=== PATIENT | female | born 1980 | race Caucasian/White ===

== ENCOUNTER 2017-03-31 13:24 | Outpatient (CLI) | payer MEDICAID ==
[~2017-03-31] VITALS: Ht 167.6 cm; Wt 97.7 kg
[2017-03-31] MEDS ORDERED: PRENAT PO (13:49)
[2017-03-31] MEDS ORDERED: FER325 PO (13:49)
[2017-03-31 13:50] VITALS: Ht 167.6 cm; Wt 97.7 kg
[2017-03-31 13:51] VITALS: BP 104/54; PULSE 88; RESP 18
[2017-03-31 14:51] LABS: ADD UMIC NO; URINE BILIRUBIN (Dip) NEGATIVE (NEGATIVE); URINE BLOOD (Dip) NEGATIVE (NEGATIVE); URINE COLOR LT. YELLOW (YELLOW); URINE GLUCOSE (Dip) NEGATIVE (NEGATIVE); URINE KETONES (Dip) NEGATIVE (NEGATIVE); URINE LEUKOCYTE ESTERASE (Dip) NEGATIVE (NEGATIVE); URINE NITRITE (Dip) NEGATIVE (NEGATIVE); URINE TOTAL PROTEIN (Dip) NEGATIVE (NEGATIVE); URINE UROBILINOGEN (Dip) 0.2 E.U./dL (0.1-1.0)
--- NOTE | 2017-03-31 14:52 | RADRPT ---
PROCEDURE: Limited obstetric ultrasound CLINICAL INDICATION: Pain , labor TECHNIQUE: Multiple transverse and longitudinal grayscale images of the pelvis were obtained dwyer sabdominally and transvaginally.. COMPARISON: same day FINDINGS: The cervix is closed with a length of 4.3 cm. There is a single viable intrauterine gestation. Cardiac activity is present with 140 beats per min rosa. There is a breech presentation. The placenta is posterior. There is no evidence for an abruption or placenta previa. RPTAT: AA IMPRESSION: Cervix length measures 4.3 cm. .William Loya MD, Date Time Electronically viewed and signed by .William Loya MD, on 03/31/2017 14:51 .S/
--- NOTE | 2017-03-31 22:00 | PN ---
Triage Information Date/Time 03/31/2017 Weeks of Gestation 28 weeks and 6 days : 4 Para: 3 Diabetes: none Hypertention: none Additional information 37-year-old with IUP at 28 weeks and 6 days with care at [facility] and history of 3 she presented to triage for evaluation rule out labor. She was seen during regular visit and told that she has some contractions every 10 minutes. She was sent to triage for rule out labor. She denies any decreased movement, leaking of fluid or vaginal bleeding. She denies any urinary symptoms. Denies any complications during the course. Patient feels less contraction when she arrived to triage Objective Vital Signs Date Time Temp Pulse Resp B/P Pulse Ox O2 Delivery O2 Flow Rate FiO2 03/31/17 13:51 98.4 88 18 104/54 Room Air Exam General appearance: Alert and oriented 4 patient does not appear to be in any acute distress. Abdomen: Soft, gravid, fundal height consistent with gestational age NST: Category 1 Occasional rare contractions seen UA negative Results/Medications Results 24 hrs Laboratory Tests Test 03/31/17 13:40 Urine Color LT. YELLOW Urine Clarity CLEAR Urine pH 6.0 Urine Specific [place] <=1.005 L Urine Ketones NEGATIVE Urine Nitrite NEGATIVE Urine Bilirubin NEGATIVE Urine Urobilinogen 0.2 E.U./dL Urine Leukocyte Esterase NEGATIVE Urine Hemoglobin NEGATIVE Urine Glucose NEGATIVE Urine Total Protein NEGATIVE Imaging Results PROCEDURE: Limited obstetric ultrasound CLINICAL INDICATION: Pain , labor TECHNIQUE: Multiple transverse and longitudinal grayscale images of the pelvis were obtained transabdominally and transvaginally.. COMPARISON: same day FINDINGS: The cervix is closed with a length of 4.3 cm. There is a single viable intrauterine gestation. Cardiac activity is present with 140 beats per minute. There is a breech presentation. The placenta is posterior. There is no evidence for an abruption or placenta previa. RPTAT: AA IMPRESSION: Cervix length measures 4.3 cm. Assessment/Plan IUP at 28 weeks and 6 days 3 no evidence of labor Rare contraction on the monitor Transvaginal cervical length about 4 cm Patient comfortable Will DC home Advise about adequate hydration labor precaution and kick count discussed Return to triage if the symptoms recurs again or has any decreased movement, contractions, leaking of fluid or vaginal bleeding Follow-up with OB office in 1-2 days recommended Patient verbalized understanding and agreed to comply with instructions EDITH FRANKLIN MD Mar 31, 2017 22:00
== END 2017-03-31 16:05 | disposition home or self-care (01) ==
LOC: OBT 13:24 → L-D 13:25 → OBT 16:05
PROVIDERS: ATTEND Obstetrics & Gynecology
DX: O62.9 Abnormality of forces of labor, unspecified (principal); O60.03 Preterm labor without delivery, third trimester; O09.523 Supervision of elderly multigravida, third trimester; Z3A.28 28 weeks gestation of pregnancy
CPT/HCPCS: 76817; 81003; Z7500; G0463

== ENCOUNTER 2017-04-23 15:40 | Outpatient (CLI) | payer MEDICAID ==
[~2017-04-23] VITALS: Ht 167.6 cm; Wt 98.3 kg
[~2017-04-23 15:40] MED LIST: FER325 PO; PRENAT PO
[2017-04-23 15:52] VITALS: Ht 167.6 cm; Wt 98.3 kg
[2017-04-23 15:56] VITALS: BP 106/59; PULSE 90; RESP 17
--- NOTE | 2017-04-23 16:43 | RADRPT ---
PROCEDURE: US OB biophysical profile. CLINICAL INDICATION: Polyhydramnios in a 37 year-old female. TECHNIQUE: Multiple sonographic images of the pelvis were obtained. The images were reviewed on a PACS workstation. COMPARISON: None FINDINGS: Presentation: Cephalic. Cardiac activity is present with 150 beats per minute. The placenta is right fundal placenta. MVP: Amniotic fluid index: 22.2 cm Biophysical profile: movement 2/2 tone 2/2. breathing 2/2 BETH 2/2 Total 06/01 IMPRESSION: 1. Amniotic fluid index: 22.2 cm 2. Normal biophysical profile. . Physician Mariaelena Date Time Electronically viewed and signed by Physician Mariaelena on 04/23/2017 16:42 JM/
--- NOTE | 2017-04-23 18:24 | CONS ---
Date/Time of Note Date/Time of Note DATE: 04/23/17 TIME: 18:20 Consultation Date/Type/Reason Admit Date/Time April 23, 2017 OB triage consult Reason for Consultation This patient is a 37 years old 4 para 3 with estimated date of confinement of June 18, 2017 which makes her 32 weeks now she had old 3 deliveries by section she came to the triage area due to polyhydramnios measured 22.55 cm in the clinic [facility] we found her to be a normal lady in no acute distress her blood pressure was 106/59, pulse rate 90, respiration 18, temperature 98 point Constitutional: No chills, No diaphoresis, No disoriented, No febrile, No improved, No no complaints, No other, No poor po, No requiring IVF, No requiring O2 Eyes: No discharge, No no complaints, No other, No pain, No redness, No visual change ENT: No bleeding, No congestion, No discharge, No dysphagia, No no complaints, No other, No pain, No sore throat Respiratory: No cough, No no complaints, No other, No pain, No pleuritic pain, No shortness of breath, No sputum, No wheezing Cardiovascular: No chest pain, No edema, No lightheadedness, No no complaints, No orthopenea, No other, No palpitations, No paroxysmal nocturnal dyspnea Gastrointestinal: No blood, No constipation, No decreased appetite, No diarrhea , No flatus, No nausea, No no complaints, No other, No pain, No passing stool, No vomiting Genitourinary: other (Pelvic exam was not performed because she was not in labor), No bleeding, No discharge, No dysuria, No flank pain, No hematuria, No no complaints Musculoskeletal: other (Knee-jerk reflex 1+), No back pain, No bone/joint pain, No neck pain, No no complaints, No restricted range of motion, No swelling Skin: No bruising, No erythema, No laceration, No no complaints, No other, No pruritis, No rash, No skin lesions Endocrine: No dry skin, No no complaints, No other, No polydypsia, No polyuria , No temp intolerance Additional Comments On ultrasound study she was found to have a polyhydramnios single live intrauterine with heartbeat 250 bpm placenta is fundal position amniotic fluid index today was 22.2 cm BETH of 8.8 With these finding patient was discharged home with instruction to kick count and to return in 3 days for follow-up and necessary tests. Social History Smoking Status: Never smoker Exam/Review of Systems Vital Signs Vitals Vital Signs Date Time Temp Pulse Resp B/P Pulse Ox O2 Delivery O2 Flow Rate FiO2 04/23/17 15:56 98.3 90 17 106/59 Room Air ALIZA POTTS MD Apr 23, 2017 18:24
--- NOTE | 2017-04-23 19:01 | TRIAGE ---
OB Triage Datetime Report Generated by CPN: 04/23/2017 19:01 Datetime: 04/23/2017 17:47 Comments: movement makes continuous monitor difficult Datetime: 04/23/2017 17:37 Monitor Mode: External Quality: Mild Pattern: Normal: <= 5 Contractions in 10 Minutes Resting Tone [place]: Relaxed Heart Rate FHR Baseline Rate: 135 Monitor Mode: External US Variability: Moderate 6-25 bpm Accelerations: 15X15 Decelerations: None Category: Category I Datetime: 04/23/2017 17:00 Monitor Mode: External Contraction Comments: no ucs Heart Rate FHR Baseline Rate: 135 Monitor Mode: External US FHR Baseline Changes: No Baseline Change Variability: Moderate 6-25 bpm Accelerations: 15X15 Decelerations: None Category: Category I Comments: Periods of loss of contact Datetime: 04/23/2017 16:17 Stage of : OB Triage Labor Evaluation Frequency: X1 Monitor Mode: External Duration (sec)2399: 60 Quality: Mild Pattern: Normal: <= 5 Contractions in 10 Minutes Resting Tone [place]: Relaxed Heart Rate FHR Baseline Rate: 145 Monitor Mode: External US Variability: Moderate 6-25 bpm Accelerations: 15X15 Decelerations: None Category: Category I Datetime: 04/23/2017 16:03 Time of Arrival: 04/23/2017 15:35 EGA: 32.0 Arrived By: Ambulatory Arrived From: Dr. Herring Movement: Present Contractions: Denies/Absent Rupture of Membranes: Denies Vaginal Bleeding: None Vaginal Discharge: Denies Recent Sexual Intercouse: Denies Abdominal Trauma: Not Applicable Patient Complaints: None Time Provider Notified: 04/23/2017 15:55 Provider Notified: MARYSOL Initial Plan: NST/BPP Datetime: 04/23/2017 15:50 Assessment Type: Triage Maternal Assessment Level of Consciousness: Fully Conscious DTR's/Clonus: DTRs 2+; No Clonus Headache: Denies Blurred Vision: No Respiratory Effort: Unlabored; Regular Rhythm; Equal Expansion Breath Sounds, Left: Clear and Equal Breath Sounds, Right: Clear and Equal Nausea/Vomiting: Denies RUQ Epigastric Pain: Denies Lower Extremities Edema: None Upper Extremities Edema: None Facial Edema: None Fall Risk Assessment History of Falling: (0) No Secondary Diagnosis: (0) No Ambulatory Aid: (0) Bedrest/Nurse Assist IV Therapy: (0) No Gait: (0) Normal/Bedrest/Immobile Mental Status: (0) Oriented to Own Ability Fall Score: 0 Fall Risk Score Definition: No Risk: No action required Datetime: 03/31/2017 15:30 Stage of : OB Triage Maternal Assessment Level of Consciousness: Fully Conscious Labor Evaluation Frequency: 3UC/HR Monitor Mode: External Duration (sec)2399: 30-60 Quality: Mild Resting Tone [place]: Relaxed Heart Rate FHR Baseline Rate: 135 Monitor Mode: External US Variability: Moderate 6-25 bpm Accelerations: 15X15 Decelerations: None Pain Assessment Pain Scale: 0 Pain Goal: 3 Vaginal Exam Membrane Status: Intact Vaginal Bleeding: None Datetime: 03/31/2017 14:30 Stage of : OB Triage Maternal Assessment Level of Consciousness: Fully Conscious Labor Evaluation Frequency: 1UC Monitor Mode: External Duration (sec)2399: 80 Quality: Mild Resting Tone [place]: Relaxed Heart Rate FHR Baseline Rate: 135 Monitor Mode: External US Variability: Moderate 6-25 bpm Accelerations: 15X15 Decelerations: None Pain Assessment Pain Scale: 0 Pain Goal: 3 Vaginal Exam Membrane Status: Intact Vaginal Bleeding: None Datetime: 03/31/2017 13:43 Assessment Type: Triage Maternal Assessment Level of Consciousness: Fully Conscious DTR's/Clonus: DTRs 2+; No Clonus Headache: Denies Blurred Vision: No Respiratory Effort: Unlabored; Regular Rhythm; Equal Expansion Breath Sounds, Left: Clear and Equal Breath Sounds, Right: Clear and Equal Nausea/Vomiting: Denies RUQ Epigastric Pain: Denies Lower Extremities Edema: None Degree: None Upper Extremities Edema: None Degree: None Facial Edema: None Fall Risk Assessment History of Falling: (0) No Secondary Diagnosis: (0) No Ambulatory Aid: (0) Bedrest/Nurse Assist IV Therapy: (0) No Gait: (0) Normal/Bedrest/Immobile Mental Status: (0) Oriented to Own Ability Fall Score: 0 Fall Risk Score Definition: No Risk: No action required Datetime: 03/31/2017 13:41 Time of Arrival: 03/31/2017 13:20 EGA: 28.5 Arrived By: Ambulatory Arrived From: Office Chief Complaint: PT SENT FROM CLINIC FOR EVAL. OF PTL Movement: Present Contractions: Denies/Absent Rupture of Membranes: Denies Vaginal Bleeding: None Vaginal Discharge: Denies Recent Sexual Intercouse: Denies Abdominal Trauma: Not Applicable Patient Complaints: None Additional Patient Complaints: UA, PO HYDRATION, CVL Time Provider Notified: 03/31/2017 14:05 Provider Notified: MARYSOL Datetime: 03/31/2017 13:39 Monitor Mode: External Monitor Mode: External US
== END 2017-04-23 18:23 | disposition home or self-care (01) ==
LOC: OBT 15:40 → L-D 15:41 → OBT 18:23
PROVIDERS: ATTEND Obstetrics & Gynecology
DX: O40.3XX0 Polyhydramnios, third trimester, not applicable or unspecified (principal); Z3A.32 32 weeks gestation of pregnancy
CPT/HCPCS: 76818; Z7500; G0463

== ENCOUNTER 2017-04-26 12:16 | Outpatient (CLI) | payer MEDICAID ==
[~2017-04-26] VITALS: Ht 167.6 cm; Wt 98.0 kg
[2017-04-26 12:27] VITALS: Ht 167.6 cm; Wt 98.0 kg
[2017-04-26 12:28] VITALS: BP 118/63; PULSE 88
--- NOTE | 2017-04-26 13:54 | RADRPT ---
PROCEDURE: US biophysical profile. CLINICAL INDICATION: History of polyhydramnios. TECHNIQUE: Multiple sonographic images of the uterus were obtained. The images were revi ewed on a PACS workstation. COMPARISON: 04/23/2017. FINDINGS: There is a single live intrauterine gestation. heart rate is 120 beats per minute. The position is cephalic. The BETH is 21.5 cm. (Normal = 5-20 cm.) Breathing Movement: 2 Gross Body Movement: 2 Tone: 2 Qualitative Amniotic Fluid Volume: 2 TOTAL: 8 IMPRESSION: 1. The biophysical score is 8/8. 2. Amniotic fluid index is 21.5 cm. RPTAT: QQ .Asael Alcazar MD, MD Date Time Electronically viewed and signed by .Asael Alcazar MD, MD on 04/26/2017 13:53 .R/
--- NOTE | 2017-04-26 15:34 | RADRPT ---
PROCEDURE: Limited obstetric ultrasound CLINICAL INDICATION: Pain TECHNIQUE: Multiple transverse and longitudinal grayscale images of the pelvis were obtained dwyer svaginally.. COMPARISON: same day FINDINGS: The cervix is closed with a length of 4.4 cm. RPTAT: AA IMPRESSION: Cervix length measures 4.4 cm. .William Loya MD, MD Date Time Electronically viewed and signed by .William Loya MD, on 04/26/2017 15:34 .S/
--- NOTE | 2017-04-26 17:03 | QN ---
Documentation Comment iup 32 weeks polyhydramnios vss exam wnl rohit 21 a/p iup 32 weeks polyhydramnios-stable continue care NEAL EDMOND MD Apr 26, 2017 17:03
== END 2017-04-26 16:21 | disposition home or self-care (01) ==
LOC: OBT 12:16 → L-D 12:18 → OBT 16:21
PROVIDERS: ATTEND Obstetrics & Gynecology
DX: O40.3XX0 Polyhydramnios, third trimester, not applicable or unspecified (principal); Z3A.32 32 weeks gestation of pregnancy
CPT/HCPCS: 76817; 76818; Z7500; G0463

== ENCOUNTER 2017-04-30 16:37 | Inpatient (IN) | payer MEDICAID ==
[~2017-04-30] VITALS: Ht 167.6 cm; Wt 98.0 kg
[2017-04-30 16:58] VITALS: Ht 167.6 cm; Wt 98.0 kg
[2017-04-30 16:59] VITALS: BP 109/52; PULSE 90; RESP 20
[2017-04-30] MEDS ORDERED: LACTATED RINGER'S 1,000 ML IV ONE (17:30)
--- NOTE | 2017-04-30 18:04 | RADRPT ---
PROCEDURE: OB ultrasound CLINICAL INDICATION: . OB ultrasound with fluid volume assessment. Polyhydramnios TECHNIQUE: Sonographic evaluation to assess the amniotic fluid volume was performed. Transabdomin al imaging of the gravid uterus was performed. COMPARISON: 04/26/2017 FINDINGS: The amniotic fluid index equals approximately 28.9 cm. heart rate: 127 Beats per minute. Presentation: Cephalic Placenta anterior IMPRESSION: Polyhydramnios with amniotic fluid index equal to 28.9 cm, increased from 21.4 cm. RPTAT: AADD .Rogelio Khan MD, MD Date Time Electronically viewed and signed by .Rogelio Khan MD, MD on 04/30/2017 18:04 .B/
[2017-04-30] MEDS ORDERED: LACTATED RINGER'S 1,000 ML IV SCH (18:19)
[2017-04-30] MEDS ORDERED: NIFEdipine 10 MG CAP ONE (18:24)
--- NOTE | 2017-04-30 18:26 | HP ---
Date/Time of Note Date/Time of Note DATE: 04/30/17 TIME: 18:24 OB - History Hx of Present Free Text/Dictation @33+wks GA with Hx of 3 Previous c/s in Labor : 4 Para: 3 Care: Good Care Ultrasounds: Normal mid trimester US Medical Complications: None Past Family/Social History * Past Medical, Surgical, Family and Obstetric Histories reviewed from chart. OB Admission Exam Vital Signs Vital Signs Vital Signs Date Time Temp Pulse Resp B/P Pulse Ox O2 Delivery O2 Flow Rate FiO2 04/30/17 16:59 98.0 90 20 109/52 Room Air Physical Exam Abdomen: WNL Extremities: Normal Cervical Dilatation: None Effacement: 0% Membranes: Intact Heart Rate: 140's Accelerations: Accelerations Present Decelerations: No Decelerations Varibility: Moderate Contractions on Admission: < 5 Minutes Apart OB Assessment/Plan Reason for admission: observation Plan: Expectant Management ARY CHACON M.D. Apr 30, 2017 18:26
[2017-04-30] MEDS: NIFEdipine 10 MG CAP PO SCH ×2 (18:27→23:44)
[2017-04-30] MEDS: LACTATED RINGER'S 1,000 ML IV SCH (18:28)
[2017-04-30] MEDS: BETAMET NA PHOS/AC(6 MG/ML) 5ML INJ IM SCH (18:39)
--- NOTE | 2017-04-30 19:23 | TRIAGE ---
OB Triage Datetime Report Generated by CPN: 04/30/2017 19:23 Datetime: 04/30/2017 18:45 Assessment Type: Admission Assessment Vaginal Bleeding: None Maternal Assessment Level of Consciousness: Fully Conscious DTR's/Clonus: DTRs 2+; No Clonus Headache: Denies Blurred Vision: No Respiratory Effort: Unlabored; Regular Rhythm; Equal Expansion Breath Sounds, Left: Clear and Equal Breath Sounds, Right: Clear and Equal Nausea/Vomiting: Denies RUQ Epigastric Pain: Denies Upper Extremities Edema: None Facial Edema: None Fall Risk Assessment History of Falling: (0) No Secondary Diagnosis: (0) No Ambulatory Aid: (0) Bedrest/Nurse Assist IV Therapy: (0) No Gait: (0) Normal/Bedrest/Immobile Mental Status: (0) Oriented to Own Ability Fall Score: 0 Fall Risk Score Definition: No Risk: No action required Datetime: 04/30/2017 18:42 Stage of : OB Triage Maternal Assessment Level of Consciousness: Fully Conscious Headache: Denies Nausea/Vomiting: Denies RUQ Epigastric Pain: Denies Labor Evaluation Frequency: 5 Monitor Mode: External Duration (sec)2399: 90 Quality: Mild Resting Tone [place]: Relaxed Heart Rate FHR Baseline Rate: 135 Monitor Mode: External US FHR Baseline Changes: No Baseline Change Variability: Moderate 6-25 bpm Accelerations: 15X15 Decelerations: None Category: Category I Pain Assessment Pain Scale: 5 Pain Presence: Intermittent Pain Type: Cramping; Contraction Pain Location: Abdomen Pain Goal: 2 Datetime: 04/30/2017 17:45 Stage of : OB Triage Maternal Assessment Level of Consciousness: Fully Conscious Headache: Denies Nausea/Vomiting: Denies RUQ Epigastric Pain: Denies Labor Evaluation Frequency: 3-9 Monitor Mode: External Duration (sec)2399: 90 Quality: Mild Resting Tone [place]: Relaxed Heart Rate FHR Baseline Rate: 135 Monitor Mode: External US FHR Baseline Changes: No Baseline Change Variability: Moderate 6-25 bpm Accelerations: 15X15 Decelerations: None Category: Category I Comments: CLYDE IN PROGRESS Pain Assessment Pain Scale: 5 Pain Presence: Intermittent Pain Type: Cramping; Contraction Pain Location: Abdomen Pain Goal: 2 Datetime: 04/30/2017 17:16 Monitor Mode: External US Datetime: 04/30/2017 16:50 Stage of : OB Triage Maternal Assessment Level of Consciousness: Fully Conscious DTR's/Clonus: DTRs 2+; No Clonus Headache: Denies Blurred Vision: No Respiratory Effort: Unlabored; Regular Rhythm; Equal Expansion Breath Sounds, Left: Clear and Equal Breath Sounds, Right: Clear and Equal Nausea/Vomiting: Denies RUQ Epigastric Pain: Denies Lower Extremities Edema: None Upper Extremities Edema: None Facial Edema: None Fall Risk Assessment History of Falling: (0) No Secondary Diagnosis: (0) No Ambulatory Aid: (0) Bedrest/Nurse Assist IV Therapy: (0) No Gait: (0) Normal/Bedrest/Immobile Mental Status: (0) Oriented to Own Ability Fall Score: 0 Fall Risk Score Definition: No Risk: No action required Labor Evaluation Frequency: X1 (Annotations: PT SAYS Q 30 MIN UC'S) Monitor Mode: External Heart Rate FHR Baseline Rate: 135 Monitor Mode: External US FHR Baseline Changes: No Baseline Change Variability: Moderate 6-25 bpm Accelerations: 15X15 Decelerations: None Category: Category I Pain Assessment Pain Scale: 6 Pain Presence: Intermittent Pain Type: Cramping; Contraction Pain Location: Abdomen Pain Goal: 2 Datetime: 04/30/2017 16:33 Time of Arrival: 04/30/2017 18:35 EGA: 33.0 Arrived By: Ambulatory Arrived From: Office Chief Complaint: UC'S FOR 1 WEEK ; WAS HERE 4/3 CX CLOSED; SENT FROM [facility] FOR NST /BETH Movement: Present Contractions: 30 MMIN PER PT Rupture of Membranes: Denies Vaginal Bleeding: None Vaginal Discharge: Denies Recent Sexual Intercouse: Denies Abdominal Trauma: Not Applicable Patient Complaints: Contractions Additional Patient Complaints: DENIES ANY MEDICAL PROBLEMS; HAS POLYHYDRAMNIOS 22.5 CM; CERVICAL L T WAS 4.4 CM 7/3 AND BETH 21.5 CM; RPT 28.9 CM Time Provider Notified: 04/30/2017 17:00 Provider Notified: MENDOZA Initial Plan: NST/BETH Datetime: 04/26/2017 16:12 Stage of : OB Triage Datetime: 04/26/2017 15:49 Labor Evaluation Frequency: OCCAS Monitor Mode: External Duration (sec)2399: 50-60 Quality: Mild Pattern: Normal: <= 5 Contractions in 10 Minutes Resting Tone [place]: Relaxed Heart Rate FHR Baseline Rate: 125 Monitor Mode: External US Variability: Moderate 6-25 bpm Accelerations: 10X10 Decelerations: None Category: Category I Pain Assessment Pain Scale: 3 Pain Presence: Intermittent Pain Type: Cramping Pain Location: Perineum Pain Goal: 3 Pain Relief Measures: Comfort Measures Datetime: 04/26/2017 14:51 Stage of : OB Triage Datetime: 04/26/2017 14:19 Labor Evaluation Frequency: 12-15 Monitor Mode: External Duration (sec)2399: 60-80 Pattern: Normal: <= 5 Contractions in 10 Minutes Resting Tone [place]: Relaxed Heart Rate FHR Baseline Rate: 125 Monitor Mode: External US Variability: Moderate 6-25 bpm Accelerations: 15X15 Decelerations: None Category: Category I Pain Assessment Pain Scale: 3 Pain Presence: Intermittent Pain Type: Cramping Pain Goal: 3 Pain Relief Measures: Comfort Measures Datetime: 04/26/2017 13:23 Labor Evaluation Frequency: OCCAS Monitor Mode: External Duration (sec)2399: 30-50 Resting Tone [place]: Relaxed Heart Rate FHR Baseline Rate: 125 Monitor Mode: External US Variability: Moderate 6-25 bpm Decelerations: None Category: Category II Pain Assessment Pain Scale: 2 Pain Presence: Intermittent Pain Type: Cramping Pain Location: Abdomen Pain Goal: 3 Pain Relief Measures: Comfort Measures Datetime: 04/26/2017 12:24 Stage of : OB Triage Assessment Type: Triage Maternal Assessment Level of Consciousness: Fully Conscious DTR's/Clonus: DTRs 2+; No Clonus Headache: Denies Blurred Vision: No Respiratory Effort: Unlabored; Regular Rhythm; Equal Expansion Breath Sounds, Left: Clear and Equal Breath Sounds, Right: Clear and Equal Nausea/Vomiting: Denies RUQ Epigastric Pain: Denies Facial Edema: None Temperature Route: Axillary Fall Risk Assessment History of Falling: (0) No Secondary Diagnosis: (0) No Ambulatory Aid: (0) Bedrest/Nurse Assist IV Therapy: (0) No Gait: (0) Normal/Bedrest/Immobile Mental Status: (0) Oriented to Own Ability Fall Score: 0 Fall Risk Score Definition: No Risk: No action required Labor Evaluation Frequency: 0 Monitor Mode: External Resting Tone [place]: Relaxed Heart Rate FHR Baseline Rate: 145 Monitor Mode: External US Variability: Moderate 6-25 bpm Decelerations: None Pain Assessment Pain Scale: 5 Pain Presence: Intermittent Pain Type: Pressure Pain Location: Abdomen; Perineum Pain Goal: 3 Pain Relief Measures: Comfort Measures Datetime: 04/26/2017 12:23 Time of Arrival: 04/26/2017 12:15 EGA: 32.3 Arrived By: Ambulatory Arrived From: Home Chief Complaint: F/U POLYHYDRAMNIOS, DENIES BLEEDING, OR LEAKING OF FLUID, OCCASIONAL UC'S Movement: Present Contractions: Occasional Rupture of Membranes: Denies Vaginal Discharge: Denies Abdominal Trauma: Not Applicable Time Provider Notified: 04/26/2017 14:51 Provider Notified: FELI Initial Plan: MONITOR, BPP/BETH, CL Datetime: 04/23/2017 16:03 EGA: 32.0 Datetime: 04/23/2017 15:50 Fall Score: 0 Fall Risk Score Definition: No Risk: No action required Datetime: 03/31/2017 13:43 Fall Score: 0 Fall Risk Score Definition: No Risk: No action required Datetime: 03/31/2017 13:41 EGA: 28.5
--- NOTE | 2017-04-30 20:50 | TRIAGE ---
OB Triage Datetime Report Generated by CPN: 04/30/2017 20:50 Datetime: 04/30/2017 20:30 Frequency: X5 Monitor Mode: External Duration (sec)2399: 40-60 Pattern: Normal: <= 5 Contractions in 10 Minutes FHR Baseline Rate: 145 FHR Baseline Changes: No Baseline Change Variability: Moderate 6-25 bpm Accelerations: 10X10 Datetime: 04/30/2017 19:40 Frequency: X5 Monitor Mode: External Duration (sec)2399: 40-60 Pattern: Normal: <= 5 Contractions in 10 Minutes FHR Baseline Rate: 145 FHR Baseline Changes: No Baseline Change Variability: Moderate 6-25 bpm Datetime: 04/30/2017 19:25 Stage of : Antepartum Datetime: 04/30/2017 19:23 Monitor Mode: External Resting Tone [place]: Relaxed Monitor Mode: External US
[2017-05-01] MEDS: LACTATED RINGER'S 1,000 ML IV SCH ×3 (02:12→18:10)
[2017-05-01] MEDS ORDERED: ACETAMINOPHEN 500 MG TAB PO PRN (03:00)
[2017-05-01] MEDS: NIFEdipine 10 MG CAP PO SCH ×3 (06:06→18:19)
[2017-05-01] MEDS: BETAMET NA PHOS/AC(6 MG/ML) 5ML INJ IM SCH (18:18)
--- NOTE | 2017-05-01 21:41 | PD.PPDC ---
[employer] Discharge Instruction Condition Patient Condition: Good Diet Diet: Resume Regular Diet Activity/Restrictions Activity: Bedrest May be up to bathroom May be up for meals May Shower Restrictions: No Exercising No Lifting Minimize Walking Minimize Stair-climbing No Sexual Activity Nothing in the Vagina No [place] No Tampons, douche Follow-up Follow-up with Physician: 3, Day/Days Return to clinic for [facility] MANAGER Instructions: Worsening abdominal pain Excessive Vaginal Bleeding TANA FOX MD May 01, 2017 21:41
[2017-05-01] MEDS ORDERED: NIFE10CA19 PO (21:42)
--- NOTE | 2017-05-01 22:49 | DS ---
Date/Time of Note Date/Time of Note DATE: 05/01/17 TIME: 22:46 Obstetrical Discharge Record Final Diagnosis Final Diagnosis: not delivered Other Final Diagnosis contractions. False labor. Complications Other ( contractions. False labor.) Augmentation: No Induction: No Tocolytics: Other (Procardia) Condition on Discharge Physical Assessment Last Vitals: BP 109/52 T=98 Voiding: Yes Bowel Movement: Yes Breast: Soft, non-tender Fundus: Other (Gravid) Calf Tenderness: No Patient Condition: Good TANA FOX MD May 01, 2017 22:49
== END 2017-05-01 22:25 | disposition home or self-care (01) | DRG 778 ==
LOC: L-D 16:37 → OBT 16:37 → OBG 19:18
PROVIDERS: ADMIT Obstetrics & Gynecology; ATTEND Obstetrics & Gynecology
DX: O60.03 Preterm labor without delivery, third trimester (principal); Z3A.33 33 weeks gestation of pregnancy
CPT/HCPCS: 36415; 76816; 96360; 96361; 96372; G0463; J0702; J7120

== ENCOUNTER 2017-05-21 13:17 | Outpatient (CLI) | payer MEDICAID ==
[~2017-05-21] VITALS: Ht 167.6 cm; Wt 100.0 kg
[~2017-05-21 13:17] MED LIST changes: +NIFE10CA19 PO
[2017-05-21 13:35] VITALS: Ht 167.6 cm; Wt 100.0 kg
[2017-05-21 13:36] VITALS: BP 126/60; PULSE 90
--- NOTE | 2017-05-21 14:19 | RADRPT ---
PROCEDURE: OB ultrasound for biophysical profile CLINICAL INDICATION: Polyhydramnios. TECHNIQUE: Multiple sonographic images of the pelvis were obtained. Transabdominal view of the gr avid uterus are available for review. The images were reviewed on a PACS workstation. COMPARISON: 04/30/2017 FINDINGS: breathing movement = 2/2 tone = 2/2 motion = 2/2 Quantitative amniotic fluid volume = 2/2 BETH = 24.6 cm Single live intrauterine with cardiac activity at 135 beats per minute. There is a fundal placenta without previa. IMPRESSION: 1. Single living intrauterine gestation in cephalic position. 2. Biophysical profile = 8. 3. BETH = 24.6 cm. RPTAT: [facility] Physician Maddy Date Time Electronically viewed and signed by Physician Maddy on 05/21/2017 14:19 /
--- NOTE | 2017-05-21 17:46 | QN ---
Documentation Comment 35 weeks abd pain vss exan wnl us polyhydramnios bpp stable a/p iup 35 weeks polyhydramnios to MFM stat rtc wednesday NEAL EDMOND MD May 21, 2017 17:46
== END 2017-05-21 17:00 | disposition home or self-care (01) ==
LOC: L-D 13:17 → OBT 13:17
PROVIDERS: ATTEND Obstetrics & Gynecology
DX: O26.893 Other specified pregnancy related conditions, third trimester (principal); R10.9 Unspecified abdominal pain; O40.3XX0 Polyhydramnios, third trimester, not applicable or unspecified
CPT/HCPCS: 76818

== ENCOUNTER 2017-05-31 12:40 | Inpatient (IN) | payer MEDICAID ==
[~2017-05-31] VITALS: Ht 167.6 cm; Wt 93.4 kg
[~2017-05-31 12:40] MED LIST changes: -NIFE10CA19 PO
[2017-05-31] MEDS ORDERED: MISOPROSTOL 200 MCG TAB PR PRN ×2 (17:00→23:00)
[2017-05-31] MEDS ORDERED: CARBOPROST 250 MCG INJ IM PRN ×2 (17:00→23:00)
[2017-05-31] MEDS ORDERED: OXYTOCIN 30 UNITS/LR 500 ML IV PRN ×2 (17:00→23:00)
[2017-05-31] MEDS ORDERED: METHYLERGONOVINE 0.2 MG INJ IM PRN ×2 (17:00→23:00)
[2017-05-31] MEDS ORDERED: CEFAZOLIN 2 GM/50 ML (PMX) 50 ML IVPB ONE (17:00)
[2017-05-31 17:11] LABS: BASOPHILS % 0.2 % (0.0-2.0); EOSINOPHILS # 0.1 10^3/ul (0.0-0.5); EOSINOPHILS % 1.3 % (0.0-7.0); HEMATOCRIT 39.4 % (37.0-47.0); HEMOGLOBIN 13.1 g/dl (12.0-16.0); LYMPHOCYTES # 2.8 10^3/ul (0.8-2.9); MEAN CORPUSCULAR HEMOGLOBIN 30.5 pg (29.0-33.0); MEAN CORPUSCULAR HGB CONC 33.2 g/dl (32.0-37.0); MEAN CORPUSCULAR VOLUME 91.8 fl (82.0-101.0); MEAN PLATELET VOLUME 10.4 fl (7.4-10.4); MONOCYTE # 0.6 10^3/ul (0.3-0.9); MONOCYTES % 6.7 % (0.0-11.0); NEUTROPHIL # 5.2 10^3/ul (1.6-7.5); NEUTROPHILS % 58.9 % (39.0-77.0); PLATELET COUNT 196 10^3/UL (140-415); RED BLOOD COUNT 4.29 10^6/ul (4.20-5.40); WHITE BLOOD COUNT 8.8 10^3/ul (4.8-10.8)
[2017-05-31 17:27] LABS: INR 1.01; PROTIME 13.3 Sec (12.2-14.2)
[2017-05-31 17:28] LABS: PARTIAL THROMBOPLASTIN TIME 26.9 Sec (25.0-35.0)
[2017-05-31] MEDS ORDERED: CITRIC ACID/NA CITRATE 30 ML CUP ONE (17:42)
[2017-05-31] MEDS ORDERED: ONDANSETRON 4 MG INJ ONE (17:42)
[2017-05-31] MEDS ORDERED: LACTATED RINGER'S 1,000 ML IV ONE (18:10)
[2017-05-31] MEDS ORDERED: morphine SULFATE/PF (10 MG/10 ML) INJ ONE (18:17)
[2017-05-31] MEDS ORDERED: FENTAnyl 50 MCG/ML VIAL ONE (18:17)
--- NOTE | 2017-05-31 18:22 | HP ---
Date/Time of Note Date/Time of Note DATE: 05/31/17 TIME: 17:54 OB - History Hx of Present Free Text/Dictation This is a 37 years old female T3 IA0 L3 admitted to [facility] referred from the perinatology clinic for extended observation due to variable deceleration while patient was in perinatology clinic, for polyhydramnios and macrosomia. Started having contractions which gradually became stronger and closer, scale 1-10 is 7 She has a history of 3 previous section ,requesting bilateral tubal ligation she has signed the consent for tubal ligation on March 31, 2017 Chief Complaint: 37 weeks 2 days history of 3 previous in active labor Estimated Due Date: Jun 18, 2017 : 4 Para: 3 Care: None Ultrasounds: Normal mid trimester US Obstetrical Complications: None Medical Complications: None Past Family/Social History * Past Medical, Surgical, Family and Obstetric Histories reviewed from chart. Rubella: immune RPR/VDRL: Negative GBS Status: Negative HBsAG: Negative OB Admission Exam Physical Exam HEENT: WNL Heart: Rhythm Normal Lungs: Clear, Equal Abdomen: WNL Extremities: Normal Reflexes: Normal Cervical Dilatation: None Membranes: Intact Heart Rate: 130's Accelerations: Accelerations Present Varibility: Moderate Contractions on Admission: < 5 Minutes Apart Intensity: Moderate Last 72 hours Lab Results CBC & BMP 05/31/17 16:50 OB Assessment/Plan Reason for admission: other (37 weeks 2 days history of 3 previous section in active labor) Plan: Other (This is a 37 years old female 4 para 3 history of 3 previous section admitted to [facility] referred from perinatology clinic which she was being followed for polyhydramnios and macrosomia at one episode of variable deceleration recommended longer observation during the observation started having contraction every 4 5 minutes scale 1-10 7 and 8 she is being prepared to undergo repeat section since she has requested voluntary sterilization bilateral tubal ligation she will have BTL the failure rate of BTL increased risk of ectopic future failure to conceive has been explained to the patient also the complication of the surgery including bowel bladder injury infection hemorrhage and hematoma and she would like to proceed with the operation) ANGEL GREGG MD May 31, 2017 18:04
[2017-05-31] MEDS ORDERED: PHENYLephrine (100 MCG/ML) 5ML SYG ONE (18:28)
[2017-05-31] MEDS ORDERED: METOCLOPRAMIDE 10 MG INJ ONE (18:30)
[2017-05-31] MEDS ORDERED: CITRIC ACID/NA CITRATE 30 ML CUP PO ONE (18:30)
[2017-05-31] MEDS ORDERED: ONDANSETRON 4 MG INJ IV ONE (18:30)
[2017-05-31] MEDS ORDERED: NALOXONE (0.4 MG/ML) INJ IV PRN (19:00)
[2017-05-31] MEDS ORDERED: NALBUPHINE HCL (10 MG/1 ML) INJ IV PRN (19:00)
[2017-05-31] MEDS ORDERED: TRIMETHOBENZAMIDE 100 MG/ML VIAL IM PRN (19:00)
[2017-05-31] MEDS ORDERED: HYDROmorphONE 1 MG/ML SYG IV PRN ×2 (19:00)
[2017-05-31] MEDS ORDERED: ONDANSETRON 4 MG INJ IV PRN (19:00)
--- NOTE | 2017-05-31 19:40 | OPR ---
Operative Report Planned Procedure Free Text/Dictation 37 years old 37 weeks and 2 days history of 3 previous section request for bilateral tubal ligation at the time of section referred from triage to L&D for extended observation due to nonreassuring heart tracing variable deceleration while patient under observation started having contractions gradually became stronger and frequency closer together, being prepared to undergo repeat section for the fourth time and bilateral tubal ligation Procedure date May 31, 2017 Procedure(s) Repeat section bilateral tubal ligation Performed by: ANGEL GREGG MD Assisting provider: NEAL EDMOND MD Anesthesiologist: AMANDA RIOS MD Pre-procedure diagnosis 37 weeks and 2 days history of 3 previous section complicated with macrosomia and polyhydramnios in active labor Anesthesia Type: spinal Procedure Description Under satisfactory [spine] anesthesia, the patient was prepped and draped and placed in a supine position, tilted to the left. Pfannenstiel incision was made , carried through the subcutaneous tissue. Bleeders brought under control with electrocautery. Fascia incised to the length of the incision. Rectus muscles from the fascia, divided midline. Peritoneum exposed, entered through a transverse incision. Exploration of abdomen revealed gravid uterus. With normal-appearing tubes and ovaries bladder flap was developed. Transverse incision was made in the lower segment of the uterus. Amniotic sac ruptured. [ Clear] amniotic fluid noted. Light baby girl was delivered from unengaged vertex [] Nasal oropharyngeal suction was performed. baby handed to the team for immediate attention. The placenta was delivered manually intact. Uterine cavity was cleaned with wet sponge and drainage established. Uterus closed in 2 layers using Monocryl #1 [] in continuous fashion. Bilateral tubal ligation performed by identifying the fimbria of right fallopian tube which was grasped by a Faye port fimbria and portion of the ampulla was resected suture material used #0 plain catgut which was reinforced with the same suture material the same procedure performed for the opposite side specimen submitted to the, peritoneal cavity irrigated with warm saline. Sponge, needle and instrument count reported to be correct. Abdominal peritoneum closed with 2-0 chromic cat [] continuously. Rectus muscle approximated with [2-0 chromic catgut]. Fascia closed with [#1 PDS], subcutaneous tissue approximated with several interrupted 2-0 chromic catgut skin closed with natasha. Estimated blood loss [6-700 cc]mL. Urine bag contained 200 []mL of clear urine patient tolerated procedure well transferred to recovery room in good condition Post-Procedure Findings: Live Baby girl Apgars 8 and Complications: None Pt Condition post procedure: stable Physician Certification I, the undersigned physician, hereby certify that I have discussed the procedure described in this consent form with this patient (or the patient's legal manufacturers representative), including: * The risk and benefits of the procedure; * Any adverse reactions that may reasonably be expected to occur; * Any alternative efficacious methods of treatment which may be medically viable ; * The potential problems that may occur during recuperation; * Potential for blood transfusion and associated risks/benefits; and * Any research or economic interest I may have regarding this treatment. I further certify that the patient/legally responsible person was encouraged to ask question and that all questions were answered. ANGEL GREGG MD May 31, 2017 19:39
[2017-05-31] MEDS: DIPHENHYDRAMINE 50 MG INJ IV PRN (21:09)
[2017-05-31] MEDS: KETOROLAC 30 MG INJ IV PRN (21:09)
[2017-05-31] MEDS: LACTATED RINGER'S 1,000 ML IV SCH (22:45)
[2017-05-31 23:00] VITALS: BP 120/67; PULSE 72; RESP 19
[2017-05-31] MEDS ORDERED: PRENATAL VITAMIN PO ONE (23:00)
[2017-05-31] MEDS ORDERED: FERROUS SULFATE (EC) 325 MG TAB PO ONE (23:00)
[2017-05-31] MEDS ORDERED: HYDROCODONE/APAP (5/325) TAB PO PRN ×2 (23:00)
[2017-05-31] MEDS ORDERED: OXYCODONE/ACETAMINOPHEN (5/325) TAB PO PRN (23:00)
[2017-05-31] MEDS ORDERED: LANOLIN 7 GM TUBE TOP PRN (23:00)
[2017-05-31] MEDS ORDERED: CEFAZOLIN 1 GM/50 ML (PMX) 50 ML IVPB SCH (23:00)
[2017-05-31] MEDS: IBUPROFEN 600 MG TAB PO SCH (23:32)
[2017-06-01] MEDS: OXYTOCIN 30 UNITS/LR 500 ML IV SCH ×7 (00:01→22:45)
[2017-06-01] MEDS: DIPHENHYDRAMINE 50 MG INJ IV PRN (03:13)
[2017-06-01 04:00] VITALS: BP 110/60; PULSE 80; RESP 18
[2017-06-01] MEDS: KETOROLAC 30 MG INJ IV PRN ×2 (04:54→13:50)
[2017-06-01] MEDS: IBUPROFEN 600 MG TAB PO SCH ×3 (06:00→18:00)
[2017-06-01] MEDS: LACTATED RINGER'S 1,000 ML IV SCH ×3 (06:45→22:45)
[2017-06-01 08:00] VITALS: BP 119/81; PULSE 70; RESP 17
[2017-06-01] MEDS: SENNA/DOCUSATE NA (8.6MG/50MG) TAB PO SCH ×2 (08:59→21:09)
[2017-06-01 09:10] LABS: BASOPHILS % 0.2 % (0.0-2.0); EOSINOPHILS # 0.1 10^3/ul (0.0-0.5); EOSINOPHILS % 1.5 % (0.0-7.0); HEMATOCRIT 33.5 % (37.0-47.0); HEMOGLOBIN 11.1 g/dl (12.0-16.0); LYMPHOCYTES # 2.1 10^3/ul (0.8-2.9); LYMPHOCYTES % 24.8 % (15.0-51.0); MEAN CORPUSCULAR HEMOGLOBIN 30.3 pg (29.0-33.0); MEAN CORPUSCULAR HGB CONC 33.1 g/dl (32.0-37.0); MEAN CORPUSCULAR VOLUME 91.5 fl (82.0-101.0); MEAN PLATELET VOLUME 10.3 fl (7.4-10.4); MONOCYTE # 0.6 10^3/ul (0.3-0.9); MONOCYTES % 7.5 % (0.0-11.0); NEUTROPHIL # 5.6 10^3/ul (1.6-7.5); NEUTROPHILS % 65.5 % (39.0-77.0); PLATELET COUNT 149 10^3/UL (140-415); RED BLOOD COUNT 3.66 10^6/ul (4.20-5.40); RED CELL DISTRIBUTION WIDTH 14.8 % (11.5-14.5); WHITE BLOOD COUNT 8.5 10^3/ul (4.8-10.8)
--- NOTE | 2017-06-01 10:31 | PN ---
Date/Time of Note Date/Time of Note DATE: 06/01/17 TIME: 10:30 OB Subjective Subjective Subjective Post day1 Afebrile Vital signs are stable Abdomen soft Bowel sounds present To pass flatus Incision dry Extremities normal Ambulation encouraged ANGEL GREGG MD Jun 01, 2017 10:31
[2017-06-01 12:00] VITALS: BP 115/73; PULSE 85; RESP 17
[2017-06-01 16:15] VITALS: BP 112/72; PULSE 83; RESP 17
[2017-06-01] MEDS: OXYCODONE/ACETAMINOPHEN (5/325) TAB PO PRN (18:36)
[2017-06-01 20:30] VITALS: BP 123/65; PULSE 92; RESP 19
[2017-06-02] MEDS: IBUPROFEN 600 MG TAB PO SCH ×5 (00:01→23:33)
[2017-06-02] MEDS: OXYTOCIN 30 UNITS/LR 500 ML IV SCH ×3 (02:01→10:45)
[2017-06-02] MEDS: OXYCODONE/ACETAMINOPHEN (5/325) TAB PO PRN ×3 (03:59→16:46)
[2017-06-02 04:00] VITALS: BP 110/60; PULSE 80; RESP 18
[2017-06-02] MEDS: LACTATED RINGER'S 1,000 ML IV SCH (06:44)
[2017-06-02 08:30] VITALS: BP 118/79; PULSE 75; RESP 18
[2017-06-02] MEDS: SENNA/DOCUSATE NA (8.6MG/50MG) TAB PO SCH ×2 (09:03→20:42)
[2017-06-02 17:26] VITALS: BP 120/73; PULSE 79
[2017-06-02 20:00] VITALS: BP 123/59; PULSE 82; RESP 20
[2017-06-03 04:00] VITALS: BP 117/53; PULSE 71; RESP 18
[2017-06-03] MEDS: IBUPROFEN 600 MG TAB PO SCH ×3 (05:36→18:00)
[2017-06-03] MEDS: SENNA/DOCUSATE NA (8.6MG/50MG) TAB PO SCH ×2 (08:46→20:04)
[2017-06-03 08:50] VITALS: BP 122/76; PULSE 78; RESP 16
[2017-06-03] MEDS ORDERED: DIPHTH/TET/ACEL PERTUSS (ADULT) 0.5 ML VIAL IM* ONE (09:00)
--- NOTE | 2017-06-03 12:09 | PN ---
Date/Time of Note Date/Time of Note DATE: 06/03/17 TIME: 12:05 OB Subjective Subjective Subjective June 03, 2017 Post day 3 Doing Well Afebrile Ambulatory Chest Clear Breasts are soft , Nipples are intact Abdomen is soft Fundus is firm Moderate amount of lochia Incision is clean ,No evidence of infection No calf tenderness No ankle edema Current Medications Medications (Trade) Dose Ordered Sig/Nishant Route PRN Reason Start Time Stop Time Status Last Admin Dose Admin Oxytocin/Lactated Ringer's 500 ml @ 0 mls/hr ONCE PRN IV For Hemorrhage Management 05/31/17 17:00 05/31/17 22:47 DC Methylergonovine Maleate (Methergine) 0.2 mg ONCE PRN IM VAGINAL BLEEDING 05/31/17 17:00 05/31/17 22:47 DC Carboprost Tromethamine (Hemabate) 250 mcg ONCE PRN IM VAGINAL BLEEDING 05/31/17 17:00 05/31/17 22:47 DC Misoprostol 1000 mcg 1,000 mcg ONCE PRN IL VAGINAL BLEEDING 05/31/17 17:00 05/31/17 22:47 DC Cefazolin Sodium/ Dextrose (Ancef 2 Gm/50 ml (Pmx)) 50 ml @ 100 mls/hr ONCE ONCE IVPB 05/31/17 17:00 05/31/17 17:29 DC Ondansetron HCl (Zofran Inj) 4 mg STK-MED ONCE .ROUTE 05/31/17 17:42 05/31/17 17:43 DC Citric Acid/ Sodium Citrate 30 ml 30 ml STK-MED ONCE .ROUTE 05/31/17 17:42 05/31/17 17:43 DC Lactated Ringer's (Lr) 1,000 ml @ 1,000 mls/hr Q1H ONCE IV 05/31/17 18:10 05/31/17 19:09 DC Ondansetron HCl (Zofran Inj) 4 mg pre-procedure ONCE IV 05/31/17 18:30 05/31/17 18:31 DC Citric Acid/ Sodium Citrate (Bicitra) 30 ml PRE-OP ONCE PO 05/31/17 18:30 05/31/17 18:31 DC Morphine Sulfate (Duramorph) 10 mg STK-MED ONCE .ROUTE 05/31/17 18:17 05/31/17 18:18 DC Fentanyl (Sublimaze) 100 mcg STK-MED ONCE .ROUTE 05/31/17 18:17 05/31/17 18:18 DC Phenylephrine HCl (Pop-Synephrine Inj Syg) 500 mcg STK-MED ONCE .ROUTE 05/31/17 18:28 05/31/17 18:29 DC Metoclopramide HCl (Reglan) 10 mg STK-MED ONCE .ROUTE 05/31/17 18:30 05/31/17 18:31 DC Naloxone HCl (Narcan) 0.1 mg Q2M PRN IV FOR RESP RATE 8 OR LESS 05/31/17 19:00 06/01/17 18:59 DC Ketorolac Tromethamine (Toradol) 30 mg Q6H PRN IV PAIN 05/31/17 19:00 06/01/17 18:59 DC 06/01/17 13:50 Hydromorphone HCl (Dilaudid) 0.2 mg Q3H PRN IV PAIN LEVEL 1-5 05/31/17 19:00 06/01/17 18:59 DC Hydromorphone HCl (Dilaudid) 0.4 mg Q3H PRN IV PAIN LEVEL 6-10 05/31/17 19:00 06/01/17 18:59 DC Diphenhydramine HCl (Benadryl) 25 mg Q6H PRN IV ITCHING 05/31/17 19:00 06/01/17 18:59 DC 06/01/17 03:13 Nalbuphine HCl (Nubain) 5 mg ONCE PRN IV ITCHING 05/31/17 19:00 06/01/17 18:59 DC Ondansetron HCl (Zofran Inj) 4 mg Q6H PRN IV NAUSEA AND/OR VOMITING 05/31/17 19:00 06/01/17 18:59 DC Trimethobenzamide HCl (Tigan) 200 mg Q6H PRN IM NAUSEA AND/OR VOMITING 05/31/17 19:00 06/01/17 18:59 DC Miscellaneous Information Duramorph: 0.2 mg Spi... GIVEN XX 05/31/17 19:00 05/31/17 22:47 DC Lactated Ringer's (Lr) 1,000 ml @ 125 mls/hr Q8H IV 05/31/17 22:45 8/9/17 10:59 DC Acetaminophen/ Hydrocodone Bitart (Superior (5/325)) 1 tab Q4H PRN PO PAIN LEVEL 4-6 05/31/17 23:00 Acetaminophen/ Hydrocodone Bitart (Superior (5/325)) 2 tab Q4H PRN PO PAIN LEVEL 7-10 05/31/17 23:00 Oxycodone/ Acetaminophen (Percocet (5/ 325)) 1 tab Q4H PRN PO PAIN LEVEL 4-6 05/31/17 23:00 Oxycodone/ Acetaminophen (Percocet (5/ 325)) 2 tab Q4H PRN PO PAIN LEVEL 7-10 05/31/17 23:00 06/02/17 16:46 Ibuprofen (Motrin) 600 mg Q6 PO 06/01/17 00:00 06/03/17 05:36 Simethicone (Mylicon) 160 mg Q8H PRN PO DISTENSION/GAS/BLOATING 05/31/17 23:00 Senna/Docusate Sodium (Senokot-S) 1 tab BID PO 06/01/17 09:00 06/03/17 08:46 Lanolin (Rnv-V-Sexwgd) 1 applic BEDSIDE MEDICATION PRN TOP BEDSIDE FOR MARCIA TO NIPPLES 05/31/17 23:00 06/01/17 13:56 Diphtheria/ Tetanus/Acell Pertussis 0.5 ml 0.5 ml ONCE ONCE IM* 06/03/17 09:00 06/03/17 09:01 DC Oxytocin/Lactated Ringer's 500 ml @ 0 mls/hr ONCE PRN IV For Hemorrhage Management 05/31/17 23:00 Methylergonovine Maleate (Methergine) 0.2 mg ONCE PRN IM VAGINAL BLEEDING 05/31/17 23:00 Carboprost Tromethamine (Hemabate) 250 mcg ONCE PRN IM VAGINAL BLEEDING 05/31/17 23:00 Misoprostol 1000 mcg 1,000 mcg ONCE PRN IL VAGINAL BLEEDING 05/31/17 23:00 Cefazolin Sodium 50 ml @ 100 mls/hr ONCE IVPB 05/31/17 23:00 05/31/17 23:29 DC 06/01/17 03:16 Oxytocin/Lactated Ringer's 500 ml @ 125 mls/hr Q4H IV 05/31/17 22:45 06/02/17 10:59 DC 06/01/17 13:52 IV Flush (NS 10 ml) 10 ml Q8H AND PRN IV 05/31/17 23:00 Ferrous Sulfate (Ferrous Sulfate (Ec)) 325 mg ONCE ONCE PO 05/31/17 23:00 05/31/17 23:09 DC Prenat Multivit/ [place]/Iron/Folic Ac () 1 tab ONCE ONCE PO 05/31/17 23:00 05/31/17 23:09 DC New born is in NICU Mother will stay in the hospital for another day and she will be discharged home tomorrow ALIZA POTTS MD Jun 03, 2017 12:09
[2017-06-03 16:10] VITALS: BP 120/79; PULSE 67; RESP 17
[2017-06-03] MEDS ORDERED: NA PHOSPHATE/BIPHOS 133 ML ENEMA PR PRN (18:30)
[2017-06-03 20:04] VITALS: BP 105/62; PULSE 85; RESP 18
[2017-06-03] MEDS: OXYCODONE/ACETAMINOPHEN (5/325) TAB PO PRN (20:04)
[2017-06-04] MEDS: IBUPROFEN 600 MG TAB PO SCH ×2 (00:27→05:56)
[2017-06-04 03:31] VITALS: BP 123/62; PULSE 83; RESP 17
[2017-06-04 08:31] VITALS: BP 113/59; PULSE 70; RESP 14
[2017-06-04] MEDS: SENNA/DOCUSATE NA (8.6MG/50MG) TAB PO SCH (08:59)
--- NOTE | 2017-06-04 09:58 | PD.PPDC ---
[facility] Discharge Instruction Condition Patient Condition: Good Diet Diet: Resume Regular Diet Activity/Restrictions Activity: Normal Activity May Shower Restrictions: No Exercising No Lifting No Driving No Sexual Activity Nothing in the Vagina No [place] No Tampons, douche Wound/Drain Care Instructions Wound/Drain Care Instructions: Remove Steri Strips in 1 week Follow-up Follow-up with Physician: 4, Day/Days Provider Information: Appointment clinic in 4 days for post check Return to clinic for [facility] [employer] Instructions: Fever greater than 101 Chills Worsening abdominal pain Excessive Vaginal Bleeding More than 2 pads per hour Unable to tolerate diet OB Instructions: Breast Tenderness Depression Blurried Vision Headache Surgical Instructions: Incisional Drainage Incisional Redness ANGEL GREGG MD Jun 04, 2017 09:58
--- NOTE | 2017-06-04 10:04 | DS ---
Date/Time of Note Date/Time of Note DATE: 06/04/17 TIME: 10:02 Discharge Summary Admission/Discharge Info Admit Date/Time May 31, 2017 at 16:25 Discharge Date/Time June 04, 2017 at 945 Patient Condition: Good Procedures section Hx of Present Illness Repeat Hospital Course Satisfactory uneventful Home Meds Reported Medications Ferrous Sulfate* (Ferrous Sulfate*) 325 Mg Tabec, 325 MG PO DAILY, TAB 03/31/17 Multivit/Min/Fol Ac/Iron/Pren* ( S*) 1 Tab Tab, 1 TAB PO DAILY, TAB 03/31/17 Follow-up Plan Post instructions given recommended to make appointment with the clinic in 1 week for post check Primary Care Provider Care Physician No Primary Time spent on discharge: < 30 minutes ANGEL GREGG MD Jun 04, 2017 10:04
--- NOTE | 2017-06-04 12:24 | NSTRPT ---
NST Information Datetime Report Generated by CPN: 06/04/2017 12:23 Datetime: 05/31/2017 10:17 NST Information EGA: 37.3 Test Number: 2 Time on Monitor: 05/31/2017 10:31 Time off Monitor: 05/31/2017 11:30 NST Duration (Min): 59 Reason for NST: Macrosomia; Polyhydramnios Test and Monitor Explained: Monitor Explained; Test Explained; Verbalized Understanding Pulse: 86 Resp: 18 SBP: 129 DBP: 69 Test Evaluation NST Interventions: Reposition Patient Patient States Movement: Present Contraction Frequency: occasional FHR Baseline : 145 Variability: Moderate 6-25bpm Accelerations: 10X10 Decelerations: None FHR Category: Category I NST Results: Questionable Comments: PT TO U/S, BETH 17.6cm, cephalic Dr. Brambila reviewed strip and recommends pt go to OB Triage for extended monitoring. Dr. French called Electronically Signed By E-Signature: with User ID: [id number], Addendum/Amendment: Signed for DrDeb Tafti Datetime: 05/27/2017 10:47 NST Information EGA: 36.6 NST Duration (Min): 32
== END 2017-06-04 13:00 | disposition home or self-care (01) | DRG 766 ==
LOC: OBT 12:40 → L-D 12:48 → OBG 13:01 → OBT 16:25 → L-D 16:25 → PP1 22:52
PROVIDERS: ADMIT Obstetrics & Gynecology; ATTEND Obstetrics & Gynecology
PROC: 0UL70ZZ Occlusion of Bilateral Fallopian Tubes, Open Approach (ICD-10-PCS; 2017-05-31)
PROC: 10D00Z1 Extraction of Products of Conception, Low, Open Approach (ICD-10-PCS; principal; 2017-05-31 18:30)
DX: O34.211 Maternal care for low transverse scar from previous cesarean delivery (principal); E66.01 Morbid (severe) obesity due to excess calories; Z3A.37 37 weeks gestation of pregnancy; O99.214 Obesity complicating childbirth; Z68.33 Body mass index [BMI] 33.0-33.9, adult; Z30.2 Encounter for sterilization; Z37.0 Single live birth
CPT/HCPCS: 36415; 85025; 85610; 85730; 86592; 86850; 86900; 86901; 86920; 87340; 88305; 90715; 94760; 99464; G0463; J0690; J1200; J1885; J2274; J2370; J2405; J2590; J2765; J3010; J7120